=== PATIENT | male | born 1980 | race Caucasian/White ===

== ENCOUNTER 2019-12-10 13:24 | Emergency (ER) | payer MEDICAID ==
[~2019-12-10] VITALS: Ht 170.2 cm; Wt 79.4 kg
[2019-12-10 13:39] VITALS: BP 120/73
--- NOTE | 2019-12-10 13:46 | NUR ---
WAIT AT LOBBY.
--- NOTE | 2019-12-10 14:47 | NUR ---
PT AMBULATED TO ER BED 11
--- NOTE | 2019-12-10 15:22 | NUR ---
39YO F C/O LEFT EYE REDNESS AND PAIN X 1 DAY. PT STATES PAIN OF 7/10, BURNING AND SHARP. +PRURITUS, +BOV. DENIES TRAUMA OR INJURY. DENIES VOMITING, H/A. NO OTHER COMPLAINTS. IN ER, VSS. PERLL 4MM. PT LYING IN BED COMFORTABLY. ER MD MADE AWARE OF PT STATUS. PMH: ASTHMA MEDS: NONE NKA
--- NOTE | 2019-12-10 16:15 | NUR ---
Dr. Aguirre is evaluating the patient at bedside.
[2019-12-10] MEDS ORDERED: FLUORESCEIN OPTH STRIP 1 MG OP ONE (16:20)
[2019-12-10] MEDS ORDERED: TETRACAINE HCL/PF 0.5% OPTH 4 ML BTL OP ONE (16:20)
[2019-12-10] MEDS ORDERED: TOMOMETER 1 DEV DEV MC ONE (17:49)
[2019-12-10 18:33] VITALS: BP 120/73
--- NOTE | 2019-12-10 18:34 | NUR ---
Patient discharged with v/s stable. Written and verbal after care instructions given and explained. Patient alert, oriented and verbalized understanding of instructions. Ambulatory with steady gait. All questions addressed prior to discharge. ID band removed. Patient advised to follow up with PMD. Rx of POLYTRIM given. Patient educated on indication of medication including possible reaction and side effects. Opportunity to ask questions provided and answered.
== END 2019-12-10 18:34 | disposition home or self-care (01) ==
LOC: MED 13:24
DX: H11.32 Conjunctival hemorrhage, left eye (principal); J45.909 Unspecified asthma, uncomplicated
CPT/HCPCS: 99283

== ENCOUNTER 2020-06-13 08:24 | Emergency (ER) | payer MEDICAID ==
[~2020-06-13] VITALS: Ht 170.2 cm; Wt 84.4 kg
--- NOTE | 2020-06-13 08:30 | NUR ---
Patient ambulated to bed 4.
[2020-06-13 08:31] VITALS: BP 155/95
--- NOTE | 2020-06-13 08:35 | NUR ---
39 y/o male from home c/o burning sensation to penis, given antibiotic cream yesterday for STD states no relief. C/O redness to head of penis. Denies discharge. Afebrile upon arrival. Denies painful/difficult urination. Awake and alert. VSS medhx: denies
--- NOTE | 2020-06-13 08:36 | NUR ---
Pt ambulated to restroom for collection of urine
--- NOTE | 2020-06-13 08:51 | NUR ---
Dr Sim at bedside examining pt
[2020-06-13 09:08] VITALS: BP 155/95
--- NOTE | 2020-06-13 09:08 | NUR ---
Patient discharged with v/s stable. Written and verbal after care instructions given and explained. Patient alert, oriented and verbalized understanding of instructions. Ambulatory with steady gait. All questions addressed prior to discharge. ID band removed. Patient advised to follow up with PMD. Rx of Bactroban 2% topical ointment given. Patient educated on indication of medication including possible reaction and side effects. Opportunity to ask questions provided and answered.
== END 2020-06-13 09:08 | disposition home or self-care (01) ==
LOC: MED 08:24
DX: N48.1 Balanitis (principal); J45.909 Unspecified asthma, uncomplicated
CPT/HCPCS: 99283

== ENCOUNTER 2020-06-26 11:47 | Emergency (ER) | payer MEDICAID ==
[~2020-06-26] VITALS: Ht 165.1 cm; Wt 82.6 kg
[2020-06-26 11:49] VITALS: BP 136/96
--- NOTE | 2020-06-26 11:54 | NUR ---
Patient ambulated to bed 12. RN evaluating patient at bedside.
--- NOTE | 2020-06-26 12:11 | NUR ---
39 YEAR OL DMALE COMPLAINS OF DYSURIA X 3 DAYS. PT STATES PAIN ONLY DURING URINATION. PT DENIES BLOOD IN URINE, FLANK PAIN, OR ANY OTHER COMPLAINTS. PT URINE IS ORANGE, STATES THAT HE IS TAKING A MEDICATION ANBITIOTIC BUT DOES NOT REMEMBER NAME. ERMD MADE AWARE OF THIS. PT AOX4, BREATHING EVEN AND UNLABORED, SKIN WARM AND DRY. BED IN LOWEST POSITION, LOCKED, BED RAIL UPX1. PMH - ASTHMA ALLERGIES - NKA
--- NOTE | 2020-06-26 12:11 | NUR ---
Dr. Alexis is evaluating the patient at bedside.
[2020-06-26] MEDS ORDERED: KETOROLAC 60 MG/2 ML VIAL IM ONE (13:30)
--- NOTE | 2020-06-26 13:30 | NUR ---
PT REPORTS HE IS HAVING PAIN IN GENITAL AREA, ERMD MADE AWARE
[2020-06-26 13:50] LABS: APPEARANCE,URINE SL CLOUDY (CLEAR); BILIRUBIN,URINE 2+ (NEGATIVE); BLOOD, URINE NEGATIVE (NEGATIVE); COLOR,URINE ORANGE (YELLOW); LEUKOCYTE ESTERASE ,URINE TRACE (NEGATIVE); NITRITE, URINE POSITIVE (NEGATIVE); PH,URINE 6.5 (5.0-9.0); UGLUCOSE 1+ (NEGATIVE)
[2020-06-26 14:08] LABS: RBC,URINE 0-5 /HPF (0-5)
--- NOTE | 2020-06-26 14:35 | NUR ---
Patient discharged with v/s stable. Written and verbal after care instructions about urinary tract infection given and explained. Patient alert, oriented and verbalized understanding of instructions. Ambulatory with steady gait. All questions addressed prior to discharge. ID band removed. Patient advised to follow up with PMD. Rx of motrin, doxycycline, pyridium given. Patient educated on indication of medication including possible reaction and side effects. Opportunity to ask questions provided and answered.
[2020-06-26 14:37] VITALS: BP 133/93
== END 2020-06-26 14:35 | disposition home or self-care (01) ==
LOC: MED 11:47
DX: N39.0 Urinary tract infection, site not specified (principal); J45.909 Unspecified asthma, uncomplicated
CPT/HCPCS: 81001; 87086; 96372; 99283; J1885

== ENCOUNTER 2020-08-15 16:09 | Emergency (ER) | payer MEDICAID ==
[~2020-08-15] VITALS: Ht 170.2 cm; Wt 86.2 kg
[2020-08-15 16:17] VITALS: BP 149/69
--- NOTE | 2020-08-15 16:22 | NUR ---
PT TAKEN TO BED 6.
--- NOTE | 2020-08-15 16:34 | NUR ---
39 Y/O MALE PRESENTS TO ER WITH C/O HEAD/NECK/SHOULDER PAIN X 3 DAYS. 10/10 PAIN. PT ALSO C/O EAR PAIN, NASAL CONGESTION, PRESSURE, "HEAVY EYES". DENIES INJURY/TRAUMA, N/V/D, SOB, COUGH, FEVER, CHILLS. A&O X4, VSS, R/R EQUAL, AND UNLABORED. SIDE RAIL X1, BED IN LOW POSITION, WILL CONTINUE TO MONITOR. ASTHMA NKDA
[2020-08-15] MEDS ORDERED: KETOROLAC 30 MG/ML VIAL IM ONE (16:35)
[2020-08-15 16:57] VITALS: BP 149/69
--- NOTE | 2020-08-15 16:57 | NUR ---
Patient discharged with v/s stable. Written and verbal after care instructions given and explained. Patient alert, oriented and verbalized understanding of instructions. Ambulatory with steady gait. All questions addressed prior to discharge. ID band removed. Patient advised to follow up with PMD. Rx of FLUTICASONE, IBUPROFEN, ZYRTEC given. Patient educated on indication of medication including possible reaction and side effects. Opportunity to ask questions provided and answered.
== END 2020-08-15 16:57 | disposition home or self-care (01) ==
LOC: MED 16:09
DX: M79.10 Myalgia, unspecified site (principal); J45.909 Unspecified asthma, uncomplicated; Z20.828 Contact with and (suspected) exposure to other viral communicable diseases
CPT/HCPCS: 96372; 99283; J1885

== ENCOUNTER 2021-02-28 08:37 | Emergency (ER) | payer MEDICAID ==
[~2021-02-28] VITALS: Ht 170.2 cm; Wt 86.2 kg
[2021-02-28 08:39] VITALS: BP 125/91
--- NOTE | 2021-02-28 08:46 | NUR ---
Patient ambulated to bed 11 with steady/even gait.
--- NOTE | 2021-02-28 08:47 | NUR ---
40 y/o M brought in from home with c/c right eye pain. Patient reports irritation, redness to right eye; reports since yesterday at 0900 while at work. Patient denies any dirty, recent illness, or blurry vision. Reports taking Systane eye drops and Tylenol "2 pills" with minor relief. Patient also reports headache to right side of face, 6/10 pain since 0500 this morning. Pt placed onto blood pressure cuff, pulse ox. Bed locked in lowest position, side rails x 1. PMH: Asthma Meds/Sx: Denies NKA
--- NOTE | 2021-02-28 08:49 | NUR ---
Dr. Dawson is evaluating the patient at bedside.
[2021-02-28] MEDS ORDERED: FLUORESCEIN OPTH STRIP 1 MG OP ONE (08:55)
[2021-02-28] MEDS ORDERED: TETRACAINE HCL/PF 0.5% OPTH 4 ML BTL OP ONE (08:55)
[2021-02-28] MEDS ORDERED: IBUPROFEN 600 MG TAB PO ONE (09:00)
[2021-02-28] MEDS ORDERED: TOMOMETER 1 DEV DEV MC ONE (09:05)
--- NOTE | 2021-02-28 09:13 | NUR ---
Dr. Dawson is reevaluating patient at bedside.
[2021-02-28] MEDS ORDERED: IBUP-2213 PO (09:24)
[2021-02-28] MEDS ORDERED: TETR15SO92 OP (09:26)
--- NOTE | 2021-02-28 09:35 | NUR ---
Patient discharged with v/s stable. Written and verbal after care instructions given and explained. Patient alert, oriented and verbalized understanding of instructions. Ambulatory with steady gait. All questions addressed prior to discharge. ID band removed. Patient advised to follow up with PMD. Rx of Ibuprofen, Tetrahydrozoline Hcl given. Patient educated on indication of medication including possible reaction and side effects. Opportunity to ask questions provided and answered.
[2021-02-28 09:38] VITALS: BP 125/91
== END 2021-02-28 09:35 | disposition home or self-care (01) ==
LOC: MED 08:37
DX: H10.33 Unspecified acute conjunctivitis, bilateral (principal); J45.909 Unspecified asthma, uncomplicated; Z79.899 Other long term (current) drug therapy
CPT/HCPCS: 99284

== ENCOUNTER 2021-04-16 11:27 | Emergency (ER) | payer MEDICAID ==
[~2021-04-16] VITALS: Ht 160 cm; Wt 90.7 kg
[~2021-04-16 11:27] MED LIST: IBUP-2213 PO; TETR15SO92 OP
[2021-04-16 11:31] VITALS: BP 120/82
[2021-04-16] MEDS ORDERED: [UNRECOGNIZED DRUG - CODE] PO (11:51)
[2021-04-16 11:58] VITALS: BP 120/82
[2021-04-16 11:58] LABS: APPEARANCE,URINE CLEAR (CLEAR); BILIRUBIN,URINE 1+ (NEGATIVE); BLOOD, URINE NEGATIVE (NEGATIVE); COLOR,URINE YELLOW (YELLOW); LEUKOCYTE ESTERASE ,URINE NEGATIVE (NEGATIVE); NITRITE, URINE NEGATIVE (NEGATIVE); UGLUCOSE NEGATIVE (NEGATIVE)
== END 2021-04-16 11:59 | disposition home or self-care (01) ==
LOC: MED 11:27
DX: N39.0 Urinary tract infection, site not specified (principal); J45.909 Unspecified asthma, uncomplicated; Z79.899 Other long term (current) drug therapy
CPT/HCPCS: 81003; 87086; 99283

== ENCOUNTER 2021-07-27 09:09 | Emergency (ER) | payer MEDICAID ==
[~2021-07-27] VITALS: Ht 170.2 cm; Wt 83.9 kg
[~2021-07-27 09:09] MED LIST changes: +[UNRECOGNIZED DRUG - CODE] PO
[2021-07-27 09:18] VITALS: BP 164/101
--- NOTE | 2021-07-27 09:25 | NUR ---
40 y/o Male BIB self for Penis pain since last night. Pt reports 5/10, constant burning pain. Denies other urinary symptoms. Pt states, "It is like this because I have been drinking the last two days." Denies swelling. Denies rash. Denies CP. Denies N/V/D abd pain. AOX4 able to make all needs known Allergies: NKA Med hx: asthma
--- NOTE | 2021-07-27 09:25 | NUR ---
PT AMBULATED TO ER BED 6
--- NOTE | 2021-07-27 09:30 | NUR ---
Dr Varner at bedside examining pt
[2021-07-27] MEDS ORDERED: CIPR500T4 PO (09:35)
[2021-07-27] MEDS ORDERED: PYR100 PO (09:35)
[2021-07-27 09:47] VITALS: BP 137/80
--- NOTE | 2021-07-27 09:47 | NUR ---
Patient discharged with v/s stable. Written and verbal after care instructions given and explained. Patient alert, oriented and verbalized understanding of instructions. Ambulatory with steady gait. All questions addressed prior to discharge. ID band removed. Patient advised to follow up with PMD. Rx of ciprofloxacin hcl given. Patient educated on indication of medication including possible reaction and side effects. Opportunity to ask questions provided and answered.
[2021-07-27 10:41] LABS: APPEARANCE,URINE CLEAR (CLEAR); BILIRUBIN,URINE NEGATIVE (NEGATIVE); BLOOD, URINE NEGATIVE (NEGATIVE); COLOR,URINE YELLOW (YELLOW); LEUKOCYTE ESTERASE ,URINE NEGATIVE (NEGATIVE); NITRITE, URINE NEGATIVE (NEGATIVE); PH,URINE 6.5 (5.0-9.0); UGLUCOSE NEGATIVE (NEGATIVE)
[2021-07-27 11:05] LABS: RBC,URINE 0-5 /HPF (0-5); WBC,URINE 0-5 /HPF (0-5)
== END 2021-07-27 09:47 | disposition home or self-care (01) ==
LOC: MED 09:09
DX: N39.0 Urinary tract infection, site not specified (principal); J45.909 Unspecified asthma, uncomplicated; Z79.899 Other long term (current) drug therapy; Z98.890 Other specified postprocedural states
CPT/HCPCS: 81001; 99283

== ENCOUNTER 2021-10-10 09:05 | Emergency (ER) | payer MEDICAID ==
[~2021-10-10] VITALS: Ht 172.7 cm; Wt 85.3 kg
[~2021-10-10 09:05] MED LIST changes: +CIPR500T4 PO; +PYR100 PO
[2021-10-10 09:16] VITALS: BP 166/115
--- NOTE | 2021-10-10 09:18 | NUR ---
PT TO AWAIT IN LOBBY
--- NOTE | 2021-10-10 09:41 | NUR ---
DR LAZO AT BEDSIDE EXAMINING PT
--- NOTE | 2021-10-10 09:41 | NUR ---
PT AMBULATED TO BED
--- NOTE | 2021-10-10 09:45 | NUR ---
41 Y/O M BIB SELF FROM HOME. PT IS AOX4, AMBULATORY, COMPLAINS OF HEMMORHOID PAIN FOR 8 DAYS. PER PT HE STATES USING HEMORRHOIDAL CREAM AND SUPPOSITORIES TO TREAT HEMORRHOIDS BUT NO RELIEVE. DENIES N/V, HEADACHE, DIZZINESS. PT IS SITTING IN CHAIR. PMH: ASTHMA MEDS: ALBUTEROL NKA
[2021-10-10] MEDS ORDERED: DOCU-299 PO (09:52)
[2021-10-10 10:11] VITALS: BP 166/115
--- NOTE | 2021-10-10 10:11 | NUR ---
Patient discharged with v/s stable. Written and verbal after care instructions given and explained. Patient alert, oriented and verbalized understanding of instructions. Ambulatory with steady gait. All questions addressed prior to discharge. ID band removed. Patient advised to follow up with PMD. Rx of COLACE given. Patient educated on indication of medication including possible reaction and side effects. Opportunity to ask questions provided and answered.
== END 2021-10-10 10:11 | disposition home or self-care (01) ==
LOC: MED 09:05
DX: K64.9 Unspecified hemorrhoids (principal); J45.909 Unspecified asthma, uncomplicated; Z79.899 Other long term (current) drug therapy
CPT/HCPCS: 99282

== ENCOUNTER 2021-11-08 09:43 | Emergency (ER) | payer MEDICAID ==
[~2021-11-08] VITALS: Ht 170.2 cm; Wt 81.6 kg
[~2021-11-08 09:43] MED LIST changes: +DOCU-299 PO
[2021-11-08 10:00] VITALS: BP 127/85
[2021-11-08] MEDS ORDERED: INHA1SPA74 MC (10:26)
[2021-11-08] MEDS ORDERED: AZIT250T4 PO (10:26)
[2021-11-08] MEDS ORDERED: BENZ200C4 PO (10:26)
[2021-11-08] MEDS ORDERED: PRED20TA5 PO (10:26)
[2021-11-08 10:39] VITALS: BP 127/85
--- NOTE | 2021-11-08 10:39 | NUR ---
NO NURSING INTERVENTIONS PROVIDED
--- NOTE | 2021-11-08 10:40 | NUR ---
Patient discharged with v/s stable. Written and verbal after care instructions ABOUT ACUTE BRONCHITIS given and explained. Patient alert, oriented and verbalized understanding of instructions. Ambulatory with steady gait. All questions addressed prior to discharge. ID band removed. Patient advised to follow up with PMD. Rx of AZITHROMYCIN, BENZONATATE, PROCARE SPACE AND DELTASONE given. Patient educated on indication of medication including possible reaction and side effects. Opportunity to ask questions provided and answered.
== END 2021-11-08 10:40 | disposition home or self-care (01) ==
LOC: MED 09:43
DX: J20.9 Acute bronchitis, unspecified (principal); J45.909 Unspecified asthma, uncomplicated; Z79.899 Other long term (current) drug therapy
CPT/HCPCS: 99283

== ENCOUNTER 2021-11-14 11:15 | Emergency (ER) | payer MEDICAID ==
[~2021-11-14] VITALS: Ht 175.3 cm; Wt 77.1 kg
[~2021-11-14 11:15] MED LIST changes: +AZIT250T4 PO; +BENZ200C4 PO; -CIPR500T4 PO; -IBUP-2213 PO; +INHA1SPA74 MC; +PRED20TA5 PO; -PYR100 PO; -[UNRECOGNIZED DRUG - CODE] PO
[2021-11-14 11:48] VITALS: BP 141/65
[2021-11-14] MEDS ORDERED: PRED20TA5 PO (11:55)
[2021-11-14] MEDS ORDERED: ALBU0.0912 IH (11:55)
--- NOTE | 2021-11-14 12:01 | NUR ---
Patient discharged with v/s stable. Written and verbal after care instructions given and explained. Patient alert, oriented and verbalized understanding of instructions. Ambulatory with steady gait. All questions addressed prior to discharge. ID band removed. Patient advised to follow up with PMD. Rx of ALBUTEROL SULFATE, PREDNISONE given.Opportunity to ask questions provided and answered.
== END 2021-11-14 12:00 | disposition home or self-care (01) ==
LOC: MED 11:15
DX: J45.909 Unspecified asthma, uncomplicated (principal); Z76.0 Encounter for issue of repeat prescription; Z79.899 Other long term (current) drug therapy; Z98.890 Other specified postprocedural states
CPT/HCPCS: 99281

== ENCOUNTER 2021-12-24 05:52 | Emergency (ER) | payer MEDICAID ==
[~2021-12-24] VITALS: Ht 170.2 cm; Wt 83.9 kg
[~2021-12-24 05:52] MED LIST changes: +ALBU0.0912 IH
[2021-12-24 05:58] VITALS: BP 147/102
--- NOTE | 2021-12-24 06:12 | NUR ---
PT AMBULATED TO BED 8
--- NOTE | 2021-12-24 06:12 | NUR ---
MD AT BEDSIDE EXAMINING PT
[2021-12-24] MEDS ORDERED: KETOROLAC 60 MG/2 ML VIAL IM ONE (06:15)
--- NOTE | 2021-12-24 06:20 | NUR ---
urine sample collected and sent to lab.
[2021-12-24] MEDS ORDERED: IBUP-2213 PO (06:45)
[2021-12-24] MEDS ORDERED: CIPR500T4 PO (06:45)
--- NOTE | 2021-12-24 06:49 | NUR ---
41 Y/O MALE BIB SELF FOR PENILE PAIN X1 DAY. PT ADMITTED HE HAD UNPROTECTED SEX 2 WEEKS AGO AND IS AFRAID THAT HE MAY HAVE CONTRACTED AN STD. PT STATES PAIN 8/10 AND HURTS TO SIT. PT IS A&0 X 4 , AMBULATORY, VSS. NO PREVIOUS MED HX AND NO CURRENT MEDS.
[2021-12-24 06:56] VITALS: BP 145/100
--- NOTE | 2021-12-24 06:58 | NUR ---
Patient discharged with v/s stable. Written and verbal after care instructions given and explained. Patient alert, oriented and verbalized understanding of instructions. Ambulatory with steady gait. All questions addressed prior to discharge. ID band removed. Patient advised to follow up with PMD. Rx of CIPRO AND IBRUPROFEN given. Opportunity to ask questions provided and answered.
== END 2021-12-24 06:58 | disposition home or self-care (01) ==
LOC: MED 05:52
DX: R30.0 Dysuria (principal); J45.909 Unspecified asthma, uncomplicated; Z79.899 Other long term (current) drug therapy; Z98.890 Other specified postprocedural states
CPT/HCPCS: 36415; 81002; 87491; 96372; 99283; J1885

== ENCOUNTER 2022-04-01 07:39 | Emergency (ER) | payer MEDICAID ==
[~2022-04-01] VITALS: Ht 170.2 cm; Wt 89.1 kg
[~2022-04-01 07:39] MED LIST changes: +CIPR500T4 PO; +IBUP-2213 PO
[2022-04-01 07:41] VITALS: BP 147/89
--- NOTE | 2022-04-01 07:45 | NUR ---
41 Y/O MALE BIB SELF C/O RIGHT FOREARM SWELLING, REDNESS AND PAIN 10/10 IN THE RIGHT FOREARM. PT STATED THAT HE WENT HIKING 1 WEEK AGO AND NOTED A BUG BITE IN THE AREA. CLEANED THE BITE WITH ALCOHOL. NOTED AREA SLOWLY GETTING LARGER AND MORE PAINFUL. DENIED ANY MEDICATION FOR THE PAIN, DENIED ANY FEVERS, CHILLS, RASHES OR SOB. NO EXUDATE SEEN ON THE AREA, SCABBED OVER [place]PR[place] AREA IN THE MIDDLE OF THE SWELLING NOTED. PT STATED THEY TRIED TO SQUEEZE THE AREA WITH "A LITTLE SOMETHING" COMING OUT. NKA PMH: ASTHMA
--- NOTE | 2022-04-01 07:45 | NUR ---
PT AMB TO BED 12.
--- NOTE | 2022-04-01 07:55 | NUR ---
DR GANN AT BEDSIDE FOR FURTHER EVAL
[2022-04-01] MEDS ORDERED: CEPH-588 PO (07:57)
--- NOTE | 2022-04-01 08:04 | NUR ---
Patient discharged with v/s stable. Written and verbal after care instructions ABOUT ABSCESS given and explained. Patient alert, oriented and verbalized understanding of instructions. Ambulatory with steady gait. All questions addressed prior to discharge. ID band removed. Patient advised to follow up with PMD. Rx of KEFLEX given. Patient educated on indication of medication including possible reaction and side effects. Opportunity to ask questions provided and answered.
== END 2022-04-01 08:04 | disposition home or self-care (01) ==
LOC: MED 07:39
DX: L03.113 Cellulitis of right upper limb (principal)
CPT/HCPCS: 99283

== ENCOUNTER 2022-04-08 06:52 | Emergency (ER) | payer MEDICAID ==
[~2022-04-08] VITALS: Ht 170.2 cm; Wt 86.2 kg
[~2022-04-08 06:52] MED LIST changes: +CEPH-588 PO
[2022-04-08 06:55] VITALS: BP 161/105
--- NOTE | 2022-04-08 07:05 | NUR ---
RECEIVED PT IN BED 9 WITH C/O CHEST PRESSURE X 3 HOURS. STATES PAIN RADIATES DOWN LEFT ARM. PATIENT STATES HAS HX OF ANXIETY AND IT FEELS SIMILAR. MEDHX: ANXIETY, ASTHMA NKA
--- NOTE | 2022-04-08 07:16 | NUR ---
X-Ray at bedside.
--- NOTE | 2022-04-08 07:24 | NUR ---
Dr. Alegre examining patient.
[2022-04-08] MEDS ORDERED: NACL 0.9% 1,000 ML IV ONE (07:30)
[2022-04-08] MEDS ORDERED: KETOROLAC 30 MG/ML VIAL IVP ONE (07:30)
[2022-04-08] MEDS ORDERED: ONDANSETRON 4 MG/2 ML VIAL IVP ONE (07:30)
[2022-04-08] MEDS ORDERED: FAMOTIDINE 20 MG/2 ML VIAL IVP ONE (07:30)
--- NOTE | 2022-04-08 07:30 | NUR ---
Pt is AOX4, able to make needs known. Resp even and unlabored on RA. Denies SOB/N/V/D. Pt states he has a sharp non-radiating chest pain 04/02 since 299 today. Pt denies any LOC, dizziness and changes in vision. Abd soft and nontender, + BS x 4. Lungs and clear bilat. CSM intact bilat upper and lower. Pt in bed 09 with safety measures in place, call light in reach.
--- NOTE | 2022-04-08 08:13 | NUR ---
Pt disclosed that he "snorted cocaine late last night" and he always experiences this pain after taking this drug. Dr Alegre made aware. Pt provided with education and provided with resources.
[2022-04-08 08:37] LABS: BASOPHILS % (AUTO) 0.6 % (0.0-2.0); EOSINOPHILS # (AUTO) 0.3 K/uL (0-0.4); HEMOGLOBIN 15.4 g/dL (12.0-18.0); LYMPHOCYTES # (AUTO) 2.4 K/uL (2.0-11.5); LYMPHOCYTES % (AUTO) 38.9 % (20.5-51.1); MEAN CORPUSCULAR HEMOGLOBIN 28 pg (27-31); MEAN CORPUSCULAR HGB CONC 33 g/dL (33-37); MEAN CORPUSCULAR VOLUME 84.9 fL (80-94); MONOCYTES # (AUTO) 0.5 K/uL (0.8-1.0); MONOCYTES % (AUTO) 8.8 % (1.7-9.3); NEUTROPHILS % (AUTO) 47.7 % (42.2-75.2); PLATELET COUNT (AUTO) 289 K/uL (140-450); RED BLOOD CELL COUNT(AUTO) 5.42 MIL/uL (4.20-6.10); WHITE BLOOD COUNT (AUTO) 6.3 K/uL (4.8-10.8)
[2022-04-08 08:41] LABS: ALBUMIN 4.2 g/dL (3.4-5.0); ANION GAP 11.5 (8-16); CARBON DIOXIDE 27.7 mmol/L (21-32); POTASSIUM 4.2 mmol/L (3.5-5.1); TOTAL BILIRUBIN 0.3 mg/dL (0.0-1.0)
--- NOTE | 2022-04-08 10:00 | NUR ---
Patient appears to be resting comfortably in bed. Vital Signs within normal limits. Respirations even and unlabored.
[2022-04-08 10:18] LABS: BARBITURATE, URINE NEGATIVE ng/ml (NEG <=200); BENZODIAZEPINE, URINE NEGATIVE ng/mL (NEG <=200); CANNABINOID, URINE NEGATIVE ng/mL (NEG <=50); COCAINE, URINE POSITIVE ng/mL (NEG <=300); OPIATE, URINE NEGATIVE ng/mL (NEG <=2000); PHENCYCLIDINE SCREEN,URINE NEGATIVE ng/mL (NEG <=25)
[2022-04-08 11:29] VITALS: BP 137/82
--- NOTE | 2022-04-08 11:29 | NUR ---
Patient discharged with v/s stable. Written and verbal after care instructions given and explained. Patient verbalized understanding with teachback. Ambulatory with steady gait. All questions addressed prior to discharge. Advised to follow up with PMD.
== END 2022-04-08 11:29 | disposition home or self-care (01) ==
LOC: MED 06:52
DX: R07.9 Chest pain, unspecified (principal); F14.10 Cocaine abuse, uncomplicated; R11.0 Nausea; R51.9 Headache, unspecified; J45.909 Unspecified asthma, uncomplicated; Z79.899 Other long term (current) drug therapy; Z98.890 Other specified postprocedural states
CPT/HCPCS: 36415; 71045; 80053; 80305; 81002; 83690; 83880; 84484; 85025; 93005; 96361; 96374; 96375; 99285; J1885; J2405; J3490; J7030; Q0092

== ENCOUNTER 2022-09-03 12:24 | Emergency (ER) | payer MEDICAID ==
[~2022-09-03] VITALS: Ht 167.6 cm; Wt 77.1 kg
[2022-09-03 12:44] VITALS: BP 160/89
--- NOTE | 2022-09-03 12:59 | NUR ---
41/M WALKED IN C/O RASH ALL OVER BODY ONSET 5 DAYS. PT STATES STAYING AT A HOTEL A DAY PRIOR TO THE ONSET. PT REPORTS SUSPECTING BED BUGS FROM THE HOTEL HE WAS AT. DENIES THROAT TIGHTNESS OR SHORTNESS OF BREATH. AAO4, AMBULATORY.
[2022-09-03] MEDS ORDERED: CETI-24 PO (13:08)
[2022-09-03] MEDS ORDERED: TRIA0.029 TP (13:08)
--- NOTE | 2022-09-03 13:10 | NUR ---
Patient discharged with v/s stable. Written and verbal after care instructions given and explained. Patient alert, oriented and verbalized understanding of instructions. Ambulatory with steady gait. All questions addressed prior to discharge. ID band removed. Patient advised to follow up with PMD. Patient educated on indication of medication including possible reaction and side effects. Opportunity to ask questions provided and answered.
== END 2022-09-03 13:10 | disposition home or self-care (01) ==
LOC: MED 12:24
DX: S80.862A Insect bite (nonvenomous), left lower leg, initial encounter (principal); S80.861A Insect bite (nonvenomous), right lower leg, initial encounter; S60.562A Insect bite (nonvenomous) of left hand, initial encounter; S60.561A Insect bite (nonvenomous) of right hand, initial encounter; J45.909 Unspecified asthma, uncomplicated; W57.XXXA Bitten or stung by nonvenomous insect and other nonvenomous arthropods, initial encounter; Y93.89 Activity, other specified; Y92.89 Other specified places as the place of occurrence of the external cause; Y99.8 Other external cause status
CPT/HCPCS: 99283

== ENCOUNTER 2022-10-15 12:25 | Emergency (ER) | payer MEDICAID ==
[~2022-10-15] VITALS: Ht 175.3 cm; Wt 83.9 kg
[~2022-10-15 12:25] MED LIST changes: +CETI-24 PO; +TRIA0.029 TP
[2022-10-15 12:37] VITALS: BP 165/102
[2022-10-15] MEDS ORDERED: ALBU0.0912 IH (12:58)
[2022-10-15] MEDS ORDERED: PROM118S5 PO (12:58)
[2022-10-15] MEDS ORDERED: IBUP-2218 PO (12:58)
[2022-10-15 13:30] VITALS: BP 146/98
== END 2022-10-15 13:30 | disposition home or self-care (01) ==
LOC: MED 12:25
DX: J06.9 Acute upper respiratory infection, unspecified (principal); Z20.822 Contact with and (suspected) exposure to COVID-19; R03.0 Elevated blood-pressure reading, without diagnosis of hypertension; J45.909 Unspecified asthma, uncomplicated
CPT/HCPCS: 99283

== ENCOUNTER 2022-11-28 21:24 | Inpatient (IN) | payer MEDICAID ==
[~2022-11-28] VITALS: Ht 170.2 cm; Wt 86.2 kg
[~2022-11-28 21:24] MED LIST changes: +IBUP-2218 PO; +PROM118S5 PO
[2022-11-28 21:27] VITALS: BP 148/100
--- NOTE | 2022-11-28 21:34 | NUR ---
TO BED AMBULATORY
--- NOTE | 2022-11-28 21:47 | NUR ---
RAD AT BEDSIDE
--- NOTE | 2022-11-28 22:00 | NUR ---
42 Y/O M presents SOB with intermittent headache and chest pain x4days with 9/10 pain. pt stated his chest feels like pressure is inside with some wheezing. pt stated he has was prescribed levaquin x2days. pt is A&Ox4, skin intact, denies any blood thinners, NVD. PMH-asthma NKA
--- NOTE | 2022-11-28 22:21 | NUR ---
Dr. Renteria examining patient.
[2022-11-28] MEDS ORDERED: NACL 0.9% 1,000 ML IV ONE (22:25)
[2022-11-28 22:48] LABS: BASOPHILS # (AUTO) 0.1 K/uL (0.00-0.22); EOSINOPHILS # (AUTO) 0.3 K/uL (0-0.4); EOSINOPHILS % (AUTO) 3.7 % (0.0-4.0); HEMATOCRIT 42.3 % (36-52); HEMOGLOBIN 14.1 g/dL (12.0-18.0); LYMPHOCYTES # (AUTO) 2.6 K/uL (2.0-11.5); LYMPHOCYTES % (AUTO) 32.3 % (20.5-51.1); MEAN CORPUSCULAR HEMOGLOBIN 27 pg (27-31); MEAN CORPUSCULAR HGB CONC 33 g/dL (33-37); MEAN CORPUSCULAR VOLUME 81.4 fL (80-94); MONOCYTES # (AUTO) 0.7 K/uL (0.8-1.0); MONOCYTES % (AUTO) 8.7 % (1.7-9.3); NEUTROPHILS # (AUTO) 4.3 K/uL (1.8-7.7); NEUTROPHILS % (AUTO) 54.3 % (42.2-75.2); PLATELET COUNT (AUTO) 358 K/uL (140-450); RED CELL DISTRIBUTION WIDTH 14.3 % (11.6-13.7); WHITE BLOOD COUNT (AUTO) 7.9 K/uL (4.8-10.8)
[2022-11-28 23:13] LABS: ALBUMIN 3.8 g/dL (3.4-5.0); ANION GAP 13.7 (8-16); CARBON DIOXIDE 29.5 mmol/L (21-32); CREATININE 0.9 mg/dL (0.6-1.3); POTASSIUM 4.2 mmol/L (3.5-5.1); TOTAL BILIRUBIN 0.2 mg/dL (0.0-1.0)
[2022-11-28] MEDS ORDERED: cefTRIAXone 1,000 MG VIAL ONE (23:44)
--- NOTE | 2022-11-28 23:45 | NUR ---
pt tolerated medication well
[2022-11-28] MEDS ORDERED: DOXYCYCLINE 100 MG CAP ONE (23:52)
[2022-11-28] MEDS ORDERED: DOXYCYCLINE 100 MG CAP PO ONE (23:55)
[2022-11-29] MEDS ORDERED: DEXAMETHASONE 10 MG/ML VIAL IVP ONE (01:25)
[2022-11-29] MEDS ORDERED: ALBUTEROL 0.083% 2.5 MG/3 ML NEBU INH ONE ×3 (01:25→20:04)
[2022-11-29] MEDS ORDERED: NON-FORMULARY ITEM (Benzonatate 1 CAP) PO PRN (01:30)
[2022-11-29] MEDS ORDERED: ACETAMINOPHEN 325 MG TAB PO PRN ×2 (01:30→03:15)
[2022-11-29] MEDS ORDERED: ONDANSETRON 4 MG/2 ML VIAL IVP PRN (01:30)
[2022-11-29] MEDS ORDERED: LORazepam 1 MG TAB PO PRN (01:30)
[2022-11-29] MEDS ORDERED: PROMETHAZINE DM 6.25/15MG-5ML ORASYR PO PRN (01:30)
[2022-11-29] MEDS ORDERED: ZOLPIDEM 5 MG TAB PO PRN (01:30)
[2022-11-29] MEDS ORDERED: HYDROcodone/APAP 5/325 MG 1 TAB TAB PO PRN (01:30)
[2022-11-29] MEDS: DEXAMETHASONE 4 MG/ML VIAL PO SCH ×2 (01:40→09:32)
[2022-11-29] MEDS ORDERED: remdesivir COMMUNICATION ORDER 1 EA MISC MC PRN (01:40)
[2022-11-29 02:24] LABS: ALBUMIN 3.5 g/dL (3.4-5.0); BILIRUBIN,DIRECT 0.1 mg/dL (0.0-0.3); TOTAL BILIRUBIN 0.2 mg/dL (0.0-1.0)
--- NOTE | 2022-11-29 03:22 | NUR ---
pt on electronic device monitor, appears anxious. asked nurse for a medication to help him sleep and a breathing treatment.
[2022-11-29 04:00] VITALS: BP 136/87
--- NOTE | 2022-11-29 04:00 | NUR ---
Patient will be admitted to care of Dr. Chu. Admited to Tele. Will go to [id number]. Belongings list completed. Report to Andres HAGER.
--- NOTE | 2022-11-29 04:00 | NUR ---
RECEIVED REPORT FROM ER NURSE BRISSA FOR CONTINUITY OF CARE. PATIENT IS A&O X4. PATIENT IS ON NC 3L, BREATHING IS NORMAL WITH SYMMETRICAL RISE AND FALL OF CHEST. PATIENT HAS A 20G R HAND, NO FLUIDS RUNNING AT THIS TIME (SALINE LOCKED). PATIENT IS SITTING UP IN BED. BED IS IN LOWEST POSITION, WHEELS LOCKED, CALL LIGHT IN PLACE. WILL CONTINUE TO OBSERVE PATIENT.
--- NOTE | 2022-11-29 07:10 | NUR ---
RECEIVED REPORT FROM PRODUCT SAFETY HEAD NURSE FOR CONTINUITY OF CARE. PT STABLE AT THIS TIME.
--- NOTE | 2022-11-29 07:32 | NUR ---
ENDORSED TO DAY SHIFT NURSE HECTOR FOR CONTINUITY OF CARE. PATIENT IS STABLE.
[2022-11-29 08:00] VITALS: BP 132/82
[2022-11-29] MEDS: ALBUTEROL SULFATE/IPRATROPIU 3 ML SOL IH PRN ×2 (09:00→11:14)
[2022-11-29] MEDS ORDERED: DOXYCYCLINE 100 MG CAP PO SCH (09:00)
[2022-11-29] MEDS: DOCUSATE SODIUM 100 MG GELCAP PO SCH (09:00)
[2022-11-29] MEDS: ENOXAPARIN 40 MG/0.4 ML SYR SUBQ SCH ×3 (09:00→22:07)
--- NOTE | 2022-11-29 09:21 | NUR ---
PATIENT HAS BEEN SCREENED AND CATEGORIZED MODERATE NUTRITION RISK. PATIENT WILL BE SEEN WITHIN 3-5 DAYS OF ADMISSION. REVIEWED BY TOBY PADILLA RD
[2022-11-29 12:00] VITALS: BP 131/97
[2022-11-29 16:00] VITALS: BP 126/81
[2022-11-29] MEDS: ALUMINUM HYD/MAG/SIMETHICONE 30 ML UDC PO PRN (17:21)
[2022-11-29] MEDS: AZITHROMYCIN 500 MG in DEXTROSE 5% 250 ML IV SCH (17:40)
--- NOTE | 2022-11-29 19:30 | NUR ---
ENDORSED PT TO NIGHTSHIFT NURSE FOR CONTINUITY OF CARE. PT IS STABLE AT THIS TIME.
[2022-11-29 20:00] VITALS: BP 118/79
[2022-11-29] MEDS ORDERED: IPRATROPIUM 0.02% 0.5 MG/2.5 ML NEBU INH ONE (20:05)
--- NOTE | 2022-11-29 21:00 | NUR ---
PT REFUSED LOVENOX INJECTION. EXPLAINED RISKS & BENEFITS, PT STILL REFUSED MED.
[2022-11-29] MEDS: methylPREDNISolone SS 125 MG/2 ML VIAL IVP SCH (21:30)
[2022-11-30] VITALS: BP 127/89
[2022-11-30 04:00] VITALS: BP 127/89
[2022-11-30] MEDS: methylPREDNISolone SS 125 MG/2 ML VIAL IVP SCH ×3 (04:29→20:38)
--- NOTE | 2022-11-30 04:29 | NUR ---
PT RECEIVED AM MEDICATION WITH WELL TOLERATED. PT VERBALIZED ABLE TO SLEEP WELL.
--- NOTE | 2022-11-30 07:10 | NUR ---
RECEIVED REPORT FROM DRUM CLEANER NURSE FOR CONTINUITY OF CARE. PT STABLE AT THIS TIME.
--- NOTE | 2022-11-30 07:20 | NUR ---
PT IS STABLE CONDITION. ALL SAFETY MEASURES ARE IN PLACE. ENDORSED TO DAY SHIFT NURSE HECTOR FOR CONTINUITY OF CARE.
[2022-11-30 07:37] LABS: HEMATOCRIT 41.4 % (36-52); LYMPHOCYTES # (AUTO) 1.1 K/uL (2.0-11.5); LYMPHOCYTES % (AUTO) 11.4 % (20.5-51.1); MEAN CORPUSCULAR HEMOGLOBIN 27 pg (27-31); MEAN CORPUSCULAR HGB CONC 34 g/dL (33-37); MEAN CORPUSCULAR VOLUME 81.1 fL (80-94); MONOCYTES # (AUTO) 0.1 K/uL (0.8-1.0); MONOCYTES % (AUTO) 1.3 % (1.7-9.3); NEUTROPHILS # (AUTO) 8.8 K/uL (1.8-7.7); NEUTROPHILS % (AUTO) 87.3 % (42.2-75.2); PLATELET COUNT (AUTO) 387 K/uL (140-450); RED BLOOD CELL COUNT(AUTO) 5.11 MIL/uL (4.20-6.10); RED CELL DISTRIBUTION WIDTH 14.2 % (11.6-13.7)
[2022-11-30 08:00] VITALS: BP 124/75
[2022-11-30 08:00] LABS: ALBUMIN 3.8 g/dL (3.4-5.0); ANION GAP 14.7 (8-16); CARBON DIOXIDE 26.7 mmol/L (21-32); CREATININE 0.9 mg/dL (0.6-1.3); MAGNESIUM 2.3 mg/dL (1.8-2.4); POTASSIUM 4.4 mmol/L (3.5-5.1); TOTAL BILIRUBIN 0.4 mg/dL (0.0-1.0)
[2022-11-30 08:07] LABS: ALBUMIN 3.8 g/dL (3.4-5.0); TOTAL BILIRUBIN 0.2 mg/dL (0.0-1.0)
[2022-11-30] MEDS: ENOXAPARIN 40 MG/0.4 ML SYR SUBQ SCH ×2 (09:00→21:00)
[2022-11-30] MEDS: DOCUSATE SODIUM 100 MG GELCAP PO SCH (09:00)
[2022-11-30] MEDS: ALUMINUM HYD/MAG/SIMETHICONE 30 ML UDC PO PRN (09:24)
[2022-11-30] MEDS: ALBUTEROL SULFATE/IPRATROPIU 3 ML SOL IH PRN (09:40)
[2022-11-30 12:00] VITALS: BP 124/73
[2022-11-30 16:00] VITALS: BP 125/74
[2022-11-30] MEDS: AZITHROMYCIN 500 MG in DEXTROSE 5% 250 ML IV SCH (18:07)
--- NOTE | 2022-11-30 19:16 | NUR ---
RECEIVED REPORT FROM DAY SHIFT NURSE HECTOR FOR CONTINUITY OF CARE. PT AWAKE SITTING IN BED. ON BARREL AND RECEIVER ALIGNER. RESPIRATIONS EVEN AND UNLABORED ON RA. INITIAL ASSESSMENT DONE. POC DISCUSSED WITH PT AND RN CHUCK. CALL LIGHT WITHIN REACH. SAFETY PRECAUTIONS IN PLACE.
[2022-11-30 20:00] VITALS: BP 124/83
--- NOTE | 2022-11-30 20:00 | NUR ---
Patient's Plan of Care was discussed and reviewed with SABINO MENDEZ.
--- NOTE | 2022-11-30 20:38 | NUR ---
SCHEDULED IV MEDS ADMINISTERED BY [employer]. NO ADVERSE REACTION NOTED. PT REFUSED TAKING LOVENOX. PT STATED HE DOESN'T NEED IT. RISKS AND BENEFITS EXPLAINED BUT PT STILL REFUSED.
[2022-12-01] VITALS: BP 126/84
--- NOTE | 2022-12-01 03:58 | NUR ---
V/S TAKEN. NO COMPLAINTS OF SOB. DENIES PAIN. PT WENT BACK TO SLEEP.
[2022-12-01 04:00] VITALS: BP 124/85
--- NOTE | 2022-12-01 05:00 | NUR ---
RT AT BEDSIDE FOR BREATHING TREATMENT.
[2022-12-01] MEDS: ALBUTEROL SULFATE/IPRATROPIU 3 ML SOL IH PRN (05:01)
--- NOTE | 2022-12-01 05:01 | NUR ---
PT REQUESTED PRN BREATHING TX, STATES HIS SOB WOKE HIM UP FROM HIS SLEEP. PT SPO2 WAS 90% ON ROOM AIR. POST TX, PT BS AND SPO2 IMPROVED (94%). PT REQUESTED O2 WHILE HE SLEEPS, PT IS AWARE HE CAN REMOVE IT AT ANY TIME. PLACED HIM ON 2L NC WHERE HIS SPO2 IS 96%.
[2022-12-01] MEDS: methylPREDNISolone SS 125 MG/2 ML VIAL IVP SCH ×2 (05:02→12:52)
--- NOTE | 2022-12-01 06:55 | NUR ---
PT REFUSED BLOOD DRAW. PER TYPEWRITER OPERATOR AUTOMATIC, PT STATED HE DOESN'T NEED IT BECAUSE HE'S GOING HOME TODAY ANYWAY. WILL ENDORSE TO DAY SHIFT NURSE.
--- NOTE | 2022-12-01 07:03 | NUR ---
GAVE BEDSIDE REPORT TO DAY SHIFT NURSE CLIFF FOR CONTINUITY OF CARE. ALL NEEDS MET THROUGHOUT SHIFT. PT IS STABLE.
--- NOTE | 2022-12-01 07:05 | NUR ---
ASSUMED CONTINUITY OF CARE. INITIAL ASSESSMENT DONE. KEEP COMFORTABLE ON BED. STILL REFUSED AM BLOOD DRAW. EXPLAINED DIAGNOSIS, PLAN OF CARE, PAIN MANAGEMENT TEACHING, USE OF CALL LIGHT/BED/TV/BATHROOM. VERBALIZED UNDERSTANDING. CALL LIGHT WITHIN REACH.
[2022-12-01 08:00] VITALS: BP 136/87
[2022-12-01] MEDS: ENOXAPARIN 40 MG/0.4 ML SYR SUBQ SCH (09:00)
[2022-12-01] MEDS: DOCUSATE SODIUM 100 MG GELCAP PO SCH (09:00)
--- NOTE | 2022-12-01 09:19 | NUR ---
REFUSED SCHEDULED MEDICINE. EXPLAINED MD ORDER, MEDICATIONS USAGE AND SIDE EFFECTS. VERBALIZED UNDERSTANDING BUT STILL REFUSED. INFORMED CHARGE NURSE LAZ ESTRELLA.
[2022-12-01 12:00] VITALS: BP 120/75
[2022-12-01] MEDS ORDERED: PRED20TA5 PO (15:33)
--- NOTE | 2022-12-01 15:47 | NUR ---
DR. ROGERS CAME AND SPOKE TO PT. AT BEDSIDE REGARDING D/C INSTRUCTIONS.
[2022-12-01 16:00] VITALS: BP 129/83
--- NOTE | 2022-12-01 16:13 | NUR ---
D/C HOME VIA WHEELCHAIR. IN STABLE CONDITION. INFORMED CHARGE NURSE LAZ ESTRELLA.
[2022-12-01] MEDS: AZITHROMYCIN 500 MG in DEXTROSE 5% 250 ML IV SCH (18:01)
== END 2022-12-01 18:15 | disposition home or self-care (01) | DRG 720 ==
LOC: MED 21:24 → MTU 11-29 01:37
PROVIDERS: ADMIT Hospitalist; ATTEND Hospitalist
DX: A41.9 Sepsis, unspecified organism (principal); J96.01 Acute respiratory failure with hypoxia; J18.9 Pneumonia, unspecified organism; J45.901 Unspecified asthma with (acute) exacerbation; Z20.822 Contact with and (suspected) exposure to COVID-19; Z79.899 Other long term (current) drug therapy; Z79.51 Long term (current) use of inhaled steroids
CPT/HCPCS: 36415; 71045; 80053; 80076; 83605; 83735; 83880; 84484; 85025; 85379; 87040; 87081; 87635-QW; 94640; 96365; 96375; 99291; J0456; J0696; J1100; J1650; J2930; J7060; J7613; J7644; Q0092

== ENCOUNTER 2022-12-29 11:40 | Emergency (ER) | payer MEDICAID ==
[~2022-12-29] VITALS: Ht 175.3 cm; Wt 79.4 kg
[~2022-12-29 11:40] MED LIST changes: -AZIT250T4 PO; -CEPH-588 PO; -CIPR500T4 PO; -IBUP-2213 PO; -IBUP-2218 PO
[2022-12-29 11:50] VITALS: BP 143/99
--- NOTE | 2022-12-29 11:53 | NUR ---
42/M WALKED IN C/O PRODUCTIVE COUGH AND CHEST TIGHTNESS THAT GETS WORSE ON INSPIRATION X 4 DAYS. AFEBRILE. ON ROOM AIR. PMH: ASTHMA
[2022-12-29] MEDS ORDERED: PRED20TA6 PO (12:13)
[2022-12-29] MEDS ORDERED: ALBU0.0912 IH (12:13)
[2022-12-29] MEDS ORDERED: predniSONE 20 MG TAB PO ONE (12:20)
[2022-12-29] MEDS ORDERED: ALBUTEROL 0.083% 2.5 MG/3 ML NEBU INH ONE (12:20)
[2022-12-29] MEDS ORDERED: predniSONE 20 MG TAB ONE (12:22)
[2022-12-29] MEDS ORDERED: cefTRIAXone 1,000 MG in LIDOCAINE MPF 1% 2.1 ML IM ONE (13:30)
[2022-12-29] MEDS ORDERED: AZIT500T1 PO (13:36)
[2022-12-29] MEDS ORDERED: AMOX1TAB8 PO (13:36)
--- NOTE | 2022-12-29 13:50 | NUR ---
PT DISCHARGED BY DR WELCH Patient discharged with v/s stable. Written and verbal after care instructions ABOUT COMMUNITY-ACQUIRED PNA given and explained. Patient alert, oriented and verbalized understanding of instructions. Ambulatory with steady gait. All questions addressed prior to discharge. ID band removed. Patient advised to follow up with PMD. Rx of ALBUTEROL SULFATE, AMOX-CLAV 875-125MG, AZITHROMYCIN, AND PREDNISONE given. Patient educated on indication of medication including possible reaction and side effects. Opportunity to ask questions provided and answered.
== END 2022-12-29 13:50 | disposition home or self-care (01) ==
LOC: MED 11:40
DX: J18.9 Pneumonia, unspecified organism (principal); J45.909 Unspecified asthma, uncomplicated; Z79.899 Other long term (current) drug therapy; Z79.2 Long term (current) use of antibiotics
CPT/HCPCS: 71045; 94640; 99283; J7512; J7613; Q0092

== ENCOUNTER 2023-01-20 13:15 | Emergency (ER) | payer MEDICAID ==
[~2023-01-20] VITALS: Ht 170.2 cm; Wt 84.4 kg
[~2023-01-20 13:15] MED LIST changes: +AMOX1TAB8 PO; +AZIT500T1 PO; +PRED20TA6 PO
[2023-01-20 13:21] VITALS: BP 141/99
--- NOTE | 2023-01-20 13:28 | NUR ---
PT AMBULATED TO ER BED 10
[2023-01-20 14:04] LABS: BASOPHILS % (AUTO) 0.4 % (0.0-2.0); EOSINOPHILS % (AUTO) 0.1 % (0.0-4.0); HEMATOCRIT 44.7 % (36-52); LYMPHOCYTES # (AUTO) 1.5 K/uL (2.0-11.5); LYMPHOCYTES % (AUTO) 19.4 % (20.5-51.1); MEAN CORPUSCULAR HEMOGLOBIN 27 pg (27-31); MEAN CORPUSCULAR HGB CONC 34 g/dL (33-37); MEAN CORPUSCULAR VOLUME 80.4 fL (80-94); MONOCYTES # (AUTO) 0.3 K/uL (0.8-1.0); NEUTROPHILS # (AUTO) 5.8 K/uL (1.8-7.7); NEUTROPHILS % (AUTO) 76.1 % (42.2-75.2); PLATELET COUNT (AUTO) 323 K/uL (140-450); RED BLOOD CELL COUNT(AUTO) 5.56 MIL/uL (4.20-6.10); RED CELL DISTRIBUTION WIDTH 14.7 % (11.6-13.7); WHITE BLOOD COUNT (AUTO) 7.6 K/uL (4.8-10.8)
[2023-01-20 14:39] LABS: ALBUMIN 3.6 g/dL (3.4-5.0); ANION GAP 11.1 (8-16); ASPARTATE AMINOTRANSFERASE 19 U/L (15-37); CARBON DIOXIDE 27.3 mmol/L (21-32); CHLORIDE 104 mmol/L (98-107); CREATININE 1.1 mg/dL (0.6-1.3); GFR ARICAN-AMERICAN 94 mL/min (>90); GLUCOSE 100 mg/dL (74-106); POTASSIUM 3.4 mmol/L (3.5-5.1); SODIUM SERUM 139 mmol/L (136-145); TOTAL BILIRUBIN 0.4 mg/dL (0.0-1.0); UREA NITROGEN, BLOOD 13 mg/dL (7-18)
[2023-01-20] MEDS ORDERED: POTASSIUM CHLORIDE 10 MEQ TABER PO ONE (15:00)
[2023-01-20 15:24] VITALS: BP 144/80
--- NOTE | 2023-01-20 15:25 | NUR ---
Patient discharged with v/s stable. Written and verbal after care instructions given and explained. Patient verbalized understanding. Ambulatory with steady gait. All questions addressed prior to discharge. Advised to follow up with PMD.
== END 2023-01-20 15:25 | disposition home or self-care (01) ==
LOC: MED 13:15
DX: I10 Essential (primary) hypertension (principal); E87.6 Hypokalemia; J45.909 Unspecified asthma, uncomplicated; E78.5 Hyperlipidemia, unspecified; Z79.899 Other long term (current) drug therapy
CPT/HCPCS: 36415; 71045; 80053; 84484; 85025; 93005; 99285; Q0092

== ENCOUNTER 2023-01-31 10:00 | Emergency (ER) | payer MEDICAID ==
[~2023-01-31] VITALS: Ht 170.2 cm; Wt 81.6 kg
[2023-01-31 10:06] VITALS: BP 131/85
--- NOTE | 2023-01-31 11:32 | NUR ---
made call out to lobby, no answer x2 lwbs by physician
--- NOTE | 2023-01-31 11:46 | NUR ---
PATIENT LEFT WITHOUT BEING SEEN BY DR. CAMPOS. NO FURTHER CARE PROVIDED FOR PATIENT.
--- NOTE | 2023-01-31 11:46 | NUR ---
made call out to lobby and outside, no answer x3 lwbs by physician
== END 2023-01-31 11:46 | disposition left against medical advice (07) ==
LOC: MED 10:00
DX: R53.83 Other fatigue (principal); Z53.21 Procedure and treatment not carried out due to patient leaving prior to being seen by health care provider
CPT/HCPCS: 99281

== ENCOUNTER 2023-12-16 20:38 | Emergency (ER) | payer MEDICAID ==
[~2023-12-16] VITALS: Ht 170.2 cm; Wt 81.6 kg
[2023-12-16 21:03] VITALS: BP_SYST 152; PULSE 84; RESP 16; TEMP 97.8; O2SAT 98
[2023-12-16 22:30] LABS: BASOPHILS # (AUTO) 0.1 K/uL (0.00-0.22); BASOPHILS % (AUTO) 0.7 % (0.0-2.0); EOSINOPHILS # (AUTO) 0.3 K/uL (0-0.4); EOSINOPHILS % (AUTO) 3.1 % (0.0-4.0); HEMATOCRIT 38.6 % (36-52); LYMPHOCYTES # (AUTO) 2.1 K/uL (2.0-11.5); LYMPHOCYTES % (AUTO) 20.7 % (20.5-51.1); MEAN CORPUSCULAR HEMOGLOBIN 27 pg (27-31); MEAN CORPUSCULAR HGB CONC 34 g/dL (33-37); MEAN CORPUSCULAR VOLUME 81.4 fL (80-94); MONOCYTES # (AUTO) 0.8 K/uL (0.8-1.0); MONOCYTES % (AUTO) 7.4 % (1.7-9.3); NEUTROPHILS % (AUTO) 68.1 % (42.2-75.2); PLATELET COUNT (AUTO) 269 K/uL (140-450); RED BLOOD CELL COUNT(AUTO) 4.74 MIL/uL (4.20-6.10); RED CELL DISTRIBUTION WIDTH 14.6 % (11.6-13.7); WHITE BLOOD COUNT (AUTO) 10.3 K/uL (4.8-10.8)
[2023-12-16 22:41] LABS: ANION GAP 10.2 (8-16); CALCIUM 8.1 mg/dL (8.5-10.1); CARBON DIOXIDE 28.7 mmol/L (21-32); CREATININE 0.9 mg/dL (0.6-1.3); POTASSIUM 3.9 mmol/L (3.5-5.1)
[2023-12-16] MEDS ORDERED: GABA100C PO (22:53)
[2023-12-16 23:02] VITALS: BP 137/87; PULSE 87; RESP 16; TEMP 97.8; O2SAT 96
== END 2023-12-16 23:07 | disposition home or self-care (01) ==
LOC: MED 20:38
DX: R20.2 Paresthesia of skin (principal); J45.909 Unspecified asthma, uncomplicated; I10 Essential (primary) hypertension; E78.00 Pure hypercholesterolemia, unspecified; Z79.899 Other long term (current) drug therapy
CPT/HCPCS: 36415; 80048; 83735; 85025; 99283